=== PATIENT | male | born 1985 | race Caucasian/White ===

== ENCOUNTER 2020-01-26 10:23 | Outpatient (REF) | payer OTHER, SELFPAY | END 2020-01-26 10:24 | disposition home or self-care (01) | LOC: HO.HMGCLDS 10:23 | PROVIDERS: PCP Internal Medicine; Visit Provider Internal Medicine | DX: Z20.828 Contact with and (suspected) exposure to other viral communicable diseases (principal) | CPT/HCPCS: C9803; U0003 ==

== ENCOUNTER 2020-02-03 10:45 | Outpatient (REF) | payer OTHER, SELFPAY | END 2020-02-03 10:46 | disposition home or self-care (01) | LOC: HO.HMGCLDS 10:45 | PROVIDERS: PCP Internal Medicine; Visit Provider Internal Medicine | DX: Z20.828 Contact with and (suspected) exposure to other viral communicable diseases (principal) | CPT/HCPCS: C9803; U0003 ==

== ENCOUNTER 2022-04-12 18:09 | Outpatient (REF) | payer OTHER, SELFPAY ==
[2022-04-12 19:12] LABS: Influenza A PCR NEGATIVE (Negative); Influenza B PCR NEGATIVE (Negative); Resp Syncy Virus RNA Qual PCR NEGATIVE (Negative); SARS COV2 PCR INHOUSE POSITIVE (Negative)
== END 2022-04-12 18:10 | disposition home or self-care (01) ==
LOC: HO.LNP 18:09
PROVIDERS: Visit Provider Physician Assistant Medical
DX: Z20.822 Contact with and (suspected) exposure to COVID-19 (principal); R05.9 Cough, unspecified
CPT/HCPCS: 0241U

== ENCOUNTER 2022-08-20 12:11 | Outpatient (REF) | payer OTHER, SELFPAY ==
[2022-08-20 13:59] LABS: MANUAL DIFF FLAG NO
[2022-08-20 14:06] LABS: Basophils Percent Auto 0.2 % (0-2); Eosinophils Absolute Auto 0.2 X10*3/uL (0.0-0.4); Eosinophils Percent Auto 2.5 % (0-4); Hematocrit 51.3 % (42.0-52.0); Hemoglobin 17.2 g/dl (14.0-18.0); Imm Gran Abs Auto 0.02 X10*3/uL (0.00-0.03); Imm Gran Pct Auto 0.3 % (0.0-0.4); Lymphocytes Absolute Auto 0.9 X10*3/uL (1.2-4.9); Lymphocytes Percent Auto 15.4 % (20-40); Mean Corpuscular HGB Conc 33.5 g/dl (31.0-36.0); Mean Corpuscular Hemoglobin 30.3 pg (27.0-33.0); Mean Corpuscular Volume 90.5 fL (80.0-98.0); Mean Platelet Volume 11.2 fL (9.4-12.4); Monocytes Absolute Auto 0.6 X10*3/uL (0.1-1.2); Monocytes Percent Auto 9.1 % (2-11); Neutrophils Absolute Auto 4.4 x10*3/uL (2.0-8.3); Neutrophils Percent Auto 72.5 % (45-73); Platelet Count 221 X10*3/uL (160-400); Red Blood Count 5.67 X10*6/uL (4.60-5.80); Red Cell Distribution Width 12.8 % (11.0-16.0)
[2022-08-20 14:52] LABS: Alanine Aminotransferase 25 U/L (0-40); Alkaline Phosphatase 72 U/L (39-117); Anion Gap 15 (12-20); Aspartate Amino Transferase 18 U/L (5-37); Bilirubin Total 0.7 mg/dL (0.0-1.0); Blood Urea Nitrogen 15 mg/dL (9-16); Carbon Dioxide 25 mmol/L (22-29); Chloride 107 mmol/L (96-108); Cholesterol 135 mg/dL; Estimated Glomerular Filt Rate > 60; Glucose Fasting 84 mg/dL (60-99); HDL Cholesterol 34 mg/dL; LDL Cholesterol Calculated 85 mg/dl; Potassium 4.2 mmol/L (3.3-5.1); Sodium 143 mmol/L (135-145); TSH reflex Free T4 0.98 uIU/mL (0.32-4.0); Total Protein 6.9 g/dL (6.5-8.0); Triglycerides 81 mg/dL
[2022-08-21 18:28] LABS: Lyme Abs Screen <0.90 index
== END 2022-08-20 12:12 | disposition home or self-care (01) ==
LOC: HO.HMGCLDS 12:11
PROVIDERS: PCP Internal Medicine; Visit Provider Physician Assistant
DX: Z00.01 Encounter for general adult medical examination with abnormal findings (principal); S00.06XA Insect bite (nonvenomous) of scalp, initial encounter; W57.XXXA Bitten or stung by nonvenomous insect and other nonvenomous arthropods, initial encounter; R03.0 Elevated blood-pressure reading, without diagnosis of hypertension
CPT/HCPCS: 36415; 80053; 80061; 84443; 85025; 86617; 86618

== ENCOUNTER 2022-11-10 11:12 | Outpatient (AMB) | payer OTHER, SELFPAY ==
--- NOTE | 2022-11-10 12:30 | MHC.OFFWIV ---
Intake Vital Signs 11/10/22 12:31 Height 4 ft 4 in Weight 165 lb BMI 42.9 BP 132/78 Blood Pressure Location Lt brachial Position Sitting Pulse 81 Pulse Source Pulse Oximeter Pulse Oximetry (%) 97 Oxygen Delivery Method Room Air Oxygen Flow Rate 98.9 Intake Visit Reasons: Rt eye pink/[phone] Intake Note: Patient is here with right eye irritation since yesterday. He states it's been watery. Patient Tobacco Use Status: Former Tobacco user (quit 6 years ago ) Allergies Doxycycline Hyclate Adverse Reaction (Unknown, Verified 11/10/22 12:31) Vomiting Do you need a note to return to daycare/school/sports/work: Yes HPI HPI Comments History of Present Illness Details This is a 37-year-old male who presents to the office today for sick visit. Patient complaining of right eye redness, irritation, and a ?gritty? feeling x2 days. He reports watery discharge but denies any purulent discharge. He denies any vision changes. He reports mild nasal congestion. He otherwise feels well without fever/chills, chest pain, shortness of breath, abdominal pain, nausea/vomiting/diarrhea. He denies any foreign body or injury to the eye. He states the symptoms are starting to spread to the left eye. [facility] Social History Housing: House Patient Tobacco Use Status: Former Tobacco user (quit 6 years ago ) Tobacco use type: Cigarette Years Smoked: 6 months e-Cigarette/Vaping Use: Never Used Second Hand Smoke Exposure: No service: No Current occupational status: employed Current occupational exposures/hazards: No Cognitive needs: No Hearing needs: No Vision needs: Yes Review of Systems Const All systems reviewed & are unremarkable except as noted in HPI and below Reports no additional complaints Eyes Reports no additional complaints ENT Reports no additional complaints Card Reports no additional complaints Resp Reports no additional complaints GI Reports no additional complaints Reports no additional complaints Musc Reports no additional complaints Skin/Breast Reports system reviewed and no additional complaints, except as documented Neuro Reports no additional complaints Psych Reports no additional complaints Endo Reports no additional complaints Raghu/Lymph Reports no additional complaints Aller/Immun Reports no additional complaints Physical Exam Vital Signs: Last Vital Signs Pulse 81 11/10/22 12:31 BP 132/78 11/10/22 12:31 Pulse Ox 97 11/10/22 12:31 Oxygen Delivery Method Room Air 11/10/22 12:31 Oxygen Flow Rate 98.9 11/10/22 12:31 BMI result Body Mass Index 42.9 Const General: cooperative, healthy appearing, no acute distress and well developed Orientation/consciousness: patient oriented x3 HEENT Head: Yes normal to inspection Ears: hearing grossly normal bilaterally General nose exam: Normal external nose present Face and sinus: Yes normal facial exam Mouth: Normal oral and palatal mucosa present Eyes Other: Conjunctival injection of the right eye with watery discharge. Pupils: Equal, round and reactive pupils present EOM: EOMs intact bilaterally Resp Effort & Inspection: normal respiratory effort and no respiratory distress Auscultation: clear to auscultation bilaterally Cardio Rate: regular rate Rhythm: regular rhythm Heart sounds: no gallops, no murmurs and no rubs Peripheral pulses: Peripheral pulses 2+ throughout GI Inspection: No distended Palpation (GI): Soft to palpation and nontender Auscultation: normal bowel sounds Skin General skin exam: no rashes or lesions noted Neuro General: patient oriented x3 Cranial nerves: Yes CN's II-XII intact bilaterally and Yes Equal, round and reactive pupils present Gait exam (Neuro): Normal gait present Motor exam (neuro): 5/5 motor strength present throughout Extrem General: Yes normal to inspection, Yes full ROM and Yes no clubbing, cyanosis or edema Psych Appearance: grossly normal Mental Status: mental status grossly normal Assessment & Plan Assessment & Plan (1) Viral conjunctivitis of both eyes: Code(s): B30.9 - Viral conjunctivitis, unspecified Plan: This is a 37-year-old male presenting to the office complaining of right greater than left eye irritation, watery discharge, and itching no purulence drainage noted. No visual changes. Patient's vital signs are stable, his physical exam is otherwise benign, and he is overall nontoxic appearing. History and physical are most consistent with viral versus allergic conjunctivitis. Patient sent home with recommendations to utilize cool compresses as well as [id number] lubricating eyedrops as needed. He was also prescribed olopatadine eyedrops every morning to help with allergic conjunctivitis. He was instructed to continue oral antihistamine treatment. Patient was educated on good hand hygiene. Patient was instructed to follow-up here or go directly to the emergency room if he were to develop worsening/persistent symptoms or visual changes. Patient verbalizes understanding and he is in agreement Medications: New olopatadine 0.2% 1 drp ophthalmic (eye) QAM 2.5 mL 0RF Coding Level of Care Code Est Pt Level 3 (47624) Diagnoses Viral conjunctivitis of both eyes B30.9
[2022-11-10 12:31] VITALS: BP 132/78; PULSE 81; O2SAT 97; BMI 42.9
== END 2022-11-10 13:02 | disposition home or self-care (01) ==
PROVIDERS: PCP Internal Medicine; Visit Provider Physician Assistant Medical
DX: B30.9 Viral conjunctivitis, unspecified (principal)
CPT/HCPCS: 99213

== ENCOUNTER 2023-06-27 15:34 | Outpatient (AMB) | payer BC, SELFPAY ==
[2023-06-27 15:27] VITALS: BP 112/72; PULSE 86; TEMP 36.9; O2SAT 95; BMI 43.5
--- NOTE | 2023-06-27 15:27 | MHC.OFFWIV ---
Intake Vital Signs 06/27/23 15:27 Height 4 ft 4 in Weight 167 lb 4 oz BMI 43.5 BP 112/72 Blood Pressure Location Lt brachial Position Sitting Pulse 86 Pulse Source Pulse Oximeter Temp 98.4 F Temp Source Oral Pulse Oximetry (%) 95 Oxygen Delivery Method Room Air Intake Visit Reasons: EP sore throat Intake Note: Pt presents to the office today for c/o a sore throat that started 2 days ago. He states he has some body aches as well. Patient Tobacco Use Status: Former Tobacco user (quit 6 years ago ) Allergies Doxycycline Hyclate Adverse Reaction (Unknown, Verified 06/27/23 15:29) Vomiting HPI HPI Comments History of Present Illness Details 38 y/o male patient who presents to walk in clinic today with c/o Sore-throat x 2 days. He has tried OTC medications with no much relief. Denies fevers, chills, nausea or vomiting. [facility] Social History Housing: House Patient Tobacco Use Status: Former Tobacco user (quit 6 years ago ) Tobacco use type: Cigarette Years Smoked: 6 months e-Cigarette/Vaping Use: Never Used Second Hand Smoke Exposure: No service: No Current occupational status: employed Current occupational exposures/hazards: No Cognitive needs: No Hearing needs: No Vision needs: Yes Physical Exam Vital Signs: Last Vital Signs Temp 98.4 F 06/27/23 15:27 Pulse 86 06/27/23 15:27 BP 112/72 06/27/23 15:27 Pulse Ox 95 06/27/23 15:27 Oxygen Delivery Method Room Air 06/27/23 15:27 BMI result Body Mass Index 43.5 Results AMB Rapid Strep AMB Rapid Strep Negative Last Edit by Padmini Campbell CMA on 06/27/23 15:45 Assessment & Plan Assessment & Plan (1) Acute pharyngitis: Code(s): J02.9 - Acute pharyngitis, unspecified Qualifiers: Pharyngitis/tonsillitis etiology: unspecified etiology Qualified Code(s): J02.9 - Acute pharyngitis, unspecified Plan: - OTC cold remedies - No need for Abx today - Warm fluids with Honey - Rest - Acetaminophen for pain relief. - RTC if symptoms worse. Orders: Orders SARS-CoV2/FLU/RSV Today J02.9 - Acute pharyngitis, unspecified AMB Rapid Strep Screen Today Z13.9 - Encounter for screening, unspecified Coding Level of Care Code Est Pt Level 3 (88844) Diagnoses Acute pharyngitis, unspecified etiology J02.9 Pharyngitis/tonsillitis etiology: unspecified etiology Time Spent (min) 15
== END 2023-06-27 15:50 | disposition home or self-care (01) ==
PROVIDERS: PCP Internal Medicine; Visit Provider Nurse Practitioner Family
DX: J02.9 Acute pharyngitis, unspecified (principal)
CPT/HCPCS: 87880; 99213

== ENCOUNTER 2023-06-27 15:47 | Outpatient (REF) | payer BC, SELFPAY ==
[2023-06-28 12:36] LABS: Influenza A PCR NEGATIVE (Negative); Influenza B PCR NEGATIVE (Negative); Resp Syncy Virus RNA Qual PCR NEGATIVE (Negative); SARS COV2 PCR INHOUSE NEGATIVE (Negative)
== END 2023-06-27 15:48 | disposition home or self-care (01) ==
LOC: HO.LAB 15:47
PROVIDERS: Visit Provider Nurse Practitioner Family
DX: J02.9 Acute pharyngitis, unspecified (principal)
CPT/HCPCS: 0241U

== ENCOUNTER 2023-07-03 14:43 | Outpatient (AMB) | payer BC, SELFPAY ==
[2023-07-03 14:56] VITALS: BP 120/62; PULSE 89; TEMP 36.9; O2SAT 96; BMI 42.9
--- NOTE | 2023-07-03 14:56 | MHC.OFFWIV ---
Intake Vital Signs 07/03/23 14:56 Height 4 ft 4 in Weight 165 lb BMI 42.9 BP 120/62 Blood Pressure Location Lt brachial Position Sitting Pulse 89 Pulse Source Pulse Oximeter Temp 98.5 F Temp Source Oral Pulse Oximetry (%) 96 Oxygen Delivery Method Room Air Intake Visit Reasons: EP chest infection (lobby) Intake Note: Patient is here with cough with brown mucous, worse at night, has a sore throat which he uses cough drops for tested neg for strep last time he was seen. Patient Tobacco Use Status: Former Tobacco user Allergies Doxycycline Hyclate Adverse Reaction (Unknown, Verified 07/03/23 14:58) Vomiting Do you need a note to return to daycare/school/sports/work: Yes HPI HPI Comments History of Present Illness Details The patient presents to urgent care for evaluation of ongoing cough. He was seen here a week ago for sore throat and viral symptoms strep test and COVID flu swabs were negative. He states that last he developed a cough which has progressed in over the weekend became productive with greenish yellow sputum. Now he is coughing up brownish sputum. No fevers no shortness of breath no chest pain. He has a nonsmoker. Patient reports that the cough was keeping him up last night and he took some NyQuil which helped considerably. [facility] Social History Housing: House Patient Tobacco Use Status: Former Tobacco user Tobacco use type: Cigarette Years Smoked: 6 months e-Cigarette/Vaping Use: Never Used Second Hand Smoke Exposure: No service: No Current occupational status: employed Current occupational exposures/hazards: No Cognitive needs: No Hearing needs: No Vision needs: Yes Physical Exam Vital Signs: Last Vital Signs Temp 98.5 F 07/03/23 14:56 Pulse 89 07/03/23 14:56 BP 120/62 07/03/23 14:56 Pulse Ox 96 07/03/23 14:56 Oxygen Delivery Method Room Air 07/03/23 14:56 BMI result Body Mass Index 42.9 Const General: healthy appearing and no acute distress HEENT Mouth: Normal oral and palatal mucosa present Resp Effort & Inspection: normal respiratory effort and able to speak in complete sentences Auscultation: clear to auscultation bilaterally Cardio Rate: regular rate Rhythm: regular rhythm Results AMB Rapid Strep AMB Rapid Strep Negative Last Edit by Bhakti Cano CMA on 07/03/23 15:12 Results Reviewed Results Reviewed: Laboratory Last Values Strep Scn Rapid Clinic Negative 07/03/23 15:09 Assessment & Plan Assessment & Plan (1) Cough: Code(s): R05.9 - Cough, unspecified Plan Symptoms consistent with viral URI/cough. Recommend supportive measures. He does not need antibiotics. Discussed Elida Sahni though he states that cough lozenges have been helping to suppress the cough and the NyQuil working. Orders: Orders AMB Rapid Strep Screen Today J02.9 - Acute pharyngitis, unspecified Coding Level of Care Code Est Pt Level 3 (66058) Diagnoses Cough R05.9
== END 2023-07-03 15:27 | disposition home or self-care (01) ==
PROVIDERS: PCP Internal Medicine; Visit Provider Emergency Medicine
DX: R05.9 Cough, unspecified (principal); J02.9 Acute pharyngitis, unspecified
CPT/HCPCS: 87880; 99213

== ENCOUNTER 2023-07-16 14:26 | Outpatient (AMB) | payer BC, SELFPAY ==
[2023-07-16 14:28] VITALS: BP 130/76; PULSE 86; O2SAT 97; BMI 42.2
--- NOTE | 2023-07-16 14:28 | A.OFFPC_ITS ---
Vital Signs 07/16/23 14:28 Height 4 ft 4 in Weight 162 lb 4 oz BMI 42.2 BP 130/76 Blood Pressure Location Rt brachial Position Sitting Pulse 86 Pulse Source Pulse Oximeter Pulse Oximetry (%) 97 Oxygen Delivery Method Room Air Intake Visit Reasons: PE Allergies Doxycycline Hyclate Adverse Reaction (Unknown, Verified 07/16/23 14:29) Vomiting Medication List - Last Reconciled 07/16/23 by Jordana Ugalde MD No Known Home Meds Tobacco use date assessed: 07/16/23 Dental Screening Dental Screen Date: 07/16/23 Did you have a dental visit in the last 12 months?: Yes Did you have a dental problem in the last 6 months where you did not have access to dental care?: No Was dental information given to patient?: Patient has dentist HPI PE HPI Details Patient is a 38-year-old gentleman with a history of achondroplasia came in today for physical examination Patient is recovering from a viral illness and is now having feeling blocked in his ears On exam patient have slight inflammation in the ear but no signs of infection He will get back to me in couple of weeks if not feeling better Patient need skin cancer screening, referral placed Blood pressure is in prehypertensive range Lab order placed to be done fasting Patient have a history of recurrent diverticulitis he has been evaluated by Gastroenterology Patient says that pain usually last a day and he is aware of dietary restrictions Today his abdomen is benign [facility] Social History Housing: House Patient Tobacco Use Status: Former Tobacco user Tobacco use type: Cigarette Years Smoked: 6 months e-Cigarette/Vaping Use: Never Used Second Hand Smoke Exposure: No service: No Current occupational status: employed Current occupational exposures/hazards: No Cognitive needs: No Hearing needs: No Vision needs: Yes Questionnaire PHQ-9 Over the last 2 weeks, how often have you been bothered by any of the following problems? 1. Little interest or pleasure in doing things: not at all 2. Feeling down, depressed, or hopeless: not at all 3. Trouble falling or staying asleep, or sleeping too much: not at all 4. Feeling tired or having little energy: not at all 5. Poor appetite or overeating: not at all 6. Feeling bad about yourself - or that you are a failure or have let yourself or your family down: not at all 7. Trouble concentrating on things, such as reading the newspaper or watching television: not at all 8. Moving or speaking so slowly that other people could have noticed. Or the opposite - being so fidgety or restless that you have been moving around a lot more than usual: not at all 9. Thoughts that you would be better off or of hurting yourself in some way: not at all Total score: 0 Depression Screening Interpretation: Negative Depression Screening Done: Yes 09948 - PHQ-9 Billing: Yes Source: Developed by Drs. William Ramirez, Vivian Hylton, Nav Guzman and colleagues, with an educational benita from [employer]. Thrive Questionnaire Date Thrive assessed: 07/16/23 I am a: Patient What is your living situation today?: I have a steady place to live Within the past 12 months, did the food you bought not last and you didn't have the money to get more?: Never true Within the past 12 months, did you worry whether your food would run out before you got money to buy more?: Never true Do you have trouble paying for medicines?: No Do you have trouble getting transportation to medical appointments?: No Do you have trouble paying your heating and electricity bill?: No Do you have trouble taking care of your child, family member or friend?: No Do you have trouble with day-to-day activities such as bathing, preparing meals, shopping, managing finances, etc.?: No Are you currently unemployed and looking for a job?: No Are you interested in more education?: No Please select the resources that you would like help with: None Currently or been in a relationship where the following occur: no concerns reported THRIVE Score: 0 AUDIT C Alcohol Use Questionnaire (AUDIT-C) 1. How often do you have a drink containing alcohol?: Never 3. How often do you have six or more drinks on one occasion?: Never Total Score: 0 Score Reviewed/Action Taken: Yes CHAY-7 AMB Questionnaire CHAY-7 Date CHAY - 7 assessed: 07/16/23 Feeling nervous, anxious, or on edge: 0 = Not at all Not being able to stop or control worryin = Not at all Worrying too much about different things: 0 = Not at all Trouble relaxin = Not at all Being so restless that it is hard to sit still: 0 = Not at all Becoming easily annoyed or irritable: 0 = Not at all Feeling afraid as if something awful might happen: 0 = Not at all Total CHAY-7 score (0-4 normal; 5-9 mild; 10-14 moderate; 15-21 severe): 0 Source: Developed by Drs. William Ramirez, Vivian Hylton, Nav Guzman and colleagues, with an educational benita from [employer]. CHAY-7 Assessment Billing CHAY-7 Assessment Tool: CHAY-7 Assessment 98473 Review of Systems Const Denies chills, Denies fever(s) and Denies headache(s) Eyes Denies blurry vision ENT Denies headache(s), Denies odynophagia and Denies sinus pain Card Denies chest pain at rest and Denies chest pain with activity Resp Denies cough and Denies hemoptysis GI Denies diarrhea, Denies odynophagia, Denies vomiting and Denies hematemesis Reports as per HPI Musc Denies abnormal gait Skin/Breast Reports as per HPI Neuro Denies Neuro-related abnormal movements, Denies Abnormal speech present, Denies abnormal gait, Denies headache(s) and Denies Sensory deficit (Neuro) Psych Denies mood swings and Denies paranoia Endo Reports as per HPI Raghu/Lymph Reports as per HPI Aller/Immun Reports as per HPI Physical exam (Primary Care) Vital Signs: Last Vital Signs Pulse 86 07/16/23 14:28 BP 130/76 07/16/23 14:28 Pulse Ox 97 07/16/23 14:28 Oxygen Delivery Method Room Air 07/16/23 14:28 BMI result Body Mass Index 42.2 Tobacco/Smoking Status: Tobacco use Status Tobacco use date assessed 07/16/23 07/16/23 14:30 Patient Tobacco Use Status Former Tobacco user 07/16/23 14:30 Tobacco use type Cigarette 07/16/23 14:30 e-Cigarette/Vaping Use Never Used 07/16/23 14:30 PHQ-9: PHQ-9 Score PHQ-9: Total score 0 07/16/23 14:47 Depression Screening Interpretation: Negative Thrive Assessment: Date of Thrive Assessment Date Thrive assessed 07/16/23 07/16/23 14:47 Currently or been in a relationship where the following occur: no concerns reported Const Other: Gentleman with achondroplasia in no acute distress, both ears with dull light reflex but no infection General: cooperative, comfortable and no acute distress Orientation/consciousness: patient oriented x3 HENMT Head: Yes normocephalic and Yes atraumatic Eyes General: appearance normal, both eyes and all related structures Pupils: Equal, round and reactive pupils present EOM: EOMs intact bilaterally Neck Neck: Yes supple and No lymphadenopathy Thyroid: Thyroid normal Lymphatic: no lymphadenopathy noted Resp Effort & Inspection: normal respiratory effort and able to speak in complete sentences Auscultation: clear to auscultation bilaterally Cardio Heart sounds: S1 normal heart sound present and S2 normal heart sound present GI Palpation (GI): Soft to palpation and nontender Auscultation: normal bowel sounds General: Yes no CVA tenderness Back/Spine/Pelvis Back: no CVA tenderness Skin General skin exam: elasticity normal and turgor normal Neuro General: patient oriented x3 Cranial nerves: Yes Equal, round and reactive pupils present Speech: No Abnormal speech present Sensory Exam: No Sensory deficit (Neuro) Coordination: tandem gait normal and Romberg test negative Extrem General: Yes normal exam except as noted and No edema Assessment and Plan Assessment & Plan (1) Encounter for general adult medical examination with abnormal findings: Code(s): Z00.01 - Encounter for general adult medical examination with abnormal findings (2) Ear congestion: Code(s): H93.8X9 - Other specified disorders of ear, unspecified ear Qualifiers: Laterality: bilateral Qualified Code(s): H93.8X3 - Other specified disorders of ear, bilateral (3) Achondroplasia: Code(s): Q77.4 - Achondroplasia (4) Diverticular disease: Code(s): K57.90 - Diverticulosis of intestine, part unspecified, without perforation or abscess without bleeding Plan Patient is a 38-year-old gentleman with a history of achondroplasia came in today for physical examination Patient is recovering from a viral illness and is now having feeling blocked in his ears On exam patient have slight inflammation in the ear but no signs of infection He will get back to me in couple of weeks if not feeling better Patient need skin cancer screening, referral placed Blood pressure is in prehypertensive range Lab order placed to be done fasting Patient have a history of recurrent diverticulitis he has been evaluated by Gastroenterology Patient says that pain usually last a day and he is aware of dietary restrictions Today his abdomen is benign Orders: Orders Complete Blood Count Auto Diff Today H93.8X9 - Other specified disorders of ear, unspecified ear, Q77.4 - Achondroplasia, Z00.01 - Encounter for general adult medical examination with abnormal findings Comprehensive [place]. Panel Fast Today H93.8X9 - Other specified disorders of ear, unspecified ear, Q77.4 - Achondroplasia, Z00.01 - Encounter for general adult medical examination with abnormal findings LDL Cholesterol Direct Today H93.8X9 - Other specified disorders of ear, unspecified ear, Q77.4 - Achondroplasia, Z00.01 - Encounter for general adult medical examination with abnormal findings TSH reflex Free T4 Today H93.8X9 - Other specified disorders of ear, unspecified ear, Q77.4 - Achondroplasia, Z00.01 - Encounter for general adult medical examination with abnormal findings Vitamin D 25-OH (D2 and D3) Today Q77.4 - Achondroplasia Referrals Dermatology Referral Z12.83 - Encounter for screening for malignant neoplasm of skin Coding Level of Care Code Est Pt Prev Care 18-39y(37041) Diagnoses Encounter for general adult medical examination with abnormal findings Z00.01 Congestion of both ears H93.8X3 Laterality: bilateral Achondroplasia Q77.4 Diverticular disease K57.90 Additional Codes CHAY-7 Assessment Billing - CHAY-7 Assessment Tool: CHAY-7 Assessment [id number] ([id number])
== END 2023-07-16 14:47 | disposition home or self-care (01) ==
PROVIDERS: PCP Internal Medicine; Visit Provider Internal Medicine
DX: Z00.00 Encounter for general adult medical examination without abnormal findings (principal); H93.8X3 Other specified disorders of ear, bilateral; Q77.4 Achondroplasia; K57.90 Diverticulosis of intestine, part unspecified, without perforation or abscess without bleeding
CPT/HCPCS: 99395

== ENCOUNTER 2024-07-24 15:23 | Outpatient (AMB) | payer BC, SELFPAY ==
[2024-07-24 15:25] VITALS: BP 120/76; PULSE 77; O2SAT 98; BMI 40.4
--- NOTE | 2024-07-24 15:25 | A.OFFPC_ITS ---
Vital Signs 07/24/24 15:25 Height 4 ft 4 in Weight 155 lb 8 oz BMI 40.4 BP 120/76 Blood Pressure Location Rt brachial Position Sitting Pulse 77 Pulse Source Pulse Oximeter Pulse Oximetry (%) 98 Oxygen Delivery Method Room Air Intake Visit Reasons: PE Allergies Doxycycline Hyclate Adverse Reaction (Unknown, Verified 07/24/24 15:26) Vomiting Medication List - Last Reconciled 07/24/24 by Jordana Ugalde MD No Known Home Meds Tobacco use date assessed: 07/24/24 Dental Screening Dental Screen Date: 07/24/24 Did you have a dental visit in the last 12 months?: Yes Did you have a dental problem in the last 6 months where you did not have access to dental care?: No Was dental information given to patient?: Patient has dentist HPI PE HPI Details Physical exam appointment - The patient is a 39-year-old male with a history of achondroplasia complaining of mid back pain. - The pain has been present for about 1- 2 months, with increasing frequency and severity. - Pain typically arises after prolonged walking and is described as tightening. - The pain is not radiating to the legs and is considered to be unrelated to spinal issues. . - The patient also reports symptoms sugg estive of prostatic hyperplasia. - Experiences post-void dribbling but de nies nocturia or increased daytime frequency. - The feeling of incomplete bladder empt paloma is not reported. - Recurrent herpes labialis is noted. - Cold sores occur approximately once or twice a year, with the most recent episode being notably severe. Health Maintenance - Discussion regarding tetanus vaccinati on status. He will be due in 2026 - Patient encouraged to keep up with [facility] screening and physical examination. Medications - Valacyclovir for herpes labialis episo neri (prescription previously used: Zovirax was mentioned but ineffective). Patient Instructions - Obtain prescribed fasting blood tests (10-12 hour fast with allowance for water/black coffee). - Schedule and complete an X-ray for the back. - Begin physical therapy to strengthen b ack muscles. - Start taking Flomax once daily for uri nary symptoms. - Monitor medication effects and follow up with a urologist if symptoms persist. - Use valacyclovir 1g at onset of cold s ore symptoms, twice a day for one day. - Follow up for routine physical examina tion in one year. Review of Systems - General: No fever no chills - Neurological: No headaches no dizzin ess - Ear nose throat: No sore throat no hearing difficulty no ear pain - Cardiovascular: No syncope, no chest pain, no palpitations - Gastrointestinal: No nausea vomiting or diarrhea - Endocrine: No polyuria polydipsia no heat intolerance - Genitourinary: No dysuria - Skin: No new complaints Physical Exam General: Cooperative, healthy appearing, comfortable, no acute distress Orientation: Patient oriented x3 Head: Normal to inspection Ears: Within normal limit visually Nose: Normal external nose present Face and sinus: Normal facial exam Eyes: Appearance normal, extraocular movement intact pupils reactive Neck: Normal visual inspection and supple Respiratory: Normal respiratory effort and able to speak in complete sentences. Clear to auscultation, no stridor Cardiovascular: S1 and S2 RRR GI: Normal to inspection. Soft to palpation and nontender Skin: Turgor normal, no acute findings Neuro: Patient oriented x3, motor sensory intact, balance intact, tandem pass Extremities: Achondroplasia full range of motion [facility] Social History Housing: House Patient Tobacco Use Status: Former Tobacco user Tobacco use type: Cigarette Years Smoked: 6 months e-Cigarette/Vaping Use: Never Used Second Hand Smoke Exposure: No service: No Current occupational status: employed Current occupational exposures/hazards: No Cognitive needs: No Hearing needs: No Vision needs: Yes Questionnaire PHQ-9 Over the last 2 weeks, how often have you been bothered by any of the following problems? 1. Little interest or pleasure in doing things: not at all 2. Feeling down, depressed, or hopeless: not at all 3. Trouble falling or staying asleep, or sleeping too much: not at all 4. Feeling tired or having little energy: several days 5. Poor appetite or overeating: not at all 6. Feeling bad about yourself - or that you are a failure or have let yourself or your family down: not at all 7. Trouble concentrating on things, such as reading the newspaper or watching television: not at all 8. Moving or speaking so slowly that other people could have noticed. Or the opposite - being so fidgety or restless that you have been moving around a lot more than usual: not at all 9. Thoughts that you would be better off or of hurting yourself in some way: not at all Total score: 1 Depression Screening Interpretation: Negative Depression Screening Done: Yes 14112 - PHQ-9 Billing: Yes Source: Developed by Drs. William Ramirez, Vivian Hylton, Nav Guzman and colleagues, with an educational benita from [employer]. Thrive Questionnaire Date Thrive assessed: 07/24/24 I am a: Patient What is your living situation today?: I have a steady place to live Within the past 12 months, did the food you bought not last and you didn't have the money to get more?: I choose not to answer this question Within the past 12 months, did you worry whether your food would run out before you got money to buy more?: I choose not to answer this question Do you have trouble paying for medicines?: I choose not to answer this question Do you have trouble getting transportation to medical appointments?: I choose not to answer this question Do you have trouble paying your heating and electricity bill?: I choose not to answer this question Do you have trouble taking care of your child, family member or friend?: I choose not to answer this question Do you have trouble with day-to-day activities such as bathing, preparing meals, shopping, managing finances, etc.?: I choose not to answer this question Are you currently unemployed and looking for a job?: I choose not to answer this question Are you interested in more education?: I choose not to answer this question Please select the resources that you would like help with: None Currently or been in a relationship where the following occur: I choose not to answer THRIVE Score: 0 AUDIT C Alcohol Use Questionnaire (AUDIT-C) 1. How often do you have a drink containing alcohol?: Monthly or less 2. How many drinks containing alcohol do you have on a typical day when you are drinking?: 1 or 2 3. How often do you have six or more drinks on one occasion?: Never Total Score: 1 Score Reviewed/Action Taken: Yes CHAY-7 AMB Questionnaire CHAY-7 Date CHAY - 7 assessed: 07/24/24 Feeling nervous, anxious, or on edge: 0 = Not at all Not being able to stop or control worryin = Not at all Worrying too much about different things: 0 = Not at all Trouble relaxin = Not at all Being so restless that it is hard to sit still: 0 = Not at all Becoming easily annoyed or irritable: 0 = Not at all Feeling afraid as if something awful might happen: 0 = Not at all Total CHAY-7 score (0-4 normal; 5-9 mild; 10-14 moderate; 15-21 severe): 0 Source: Developed by Drs. William Ramirez, Vivian Hyltno, Nav Guzman and colleagues, with an educational benita from [employer]. CHAY-7 Assessment Billing CHAY-7 Assessment Tool: CHAY-7 Assessment 64651 Physical exam (Primary Care) Vital Signs: Last Vital Signs Pulse 77 07/24/24 15:25 BP 120/76 07/24/24 15:25 Pulse Ox 98 07/24/24 15:25 Oxygen Delivery Method Room Air 07/24/24 15:25 BMI result Body Mass Index 40.4 Tobacco/Smoking Status: Tobacco use Status Tobacco use date assessed 07/24/24 07/24/24 15:27 Patient Tobacco Use Status Former Tobacco user 07/24/24 15:27 Tobacco use type Cigarette 07/24/24 15:27 e-Cigarette/Vaping Use Never Used 07/24/24 15:27 PHQ-9: PHQ-9 Score PHQ-9: Total score 1 07/24/24 15:30 Depression Screening Interpretation: Negative Thrive Assessment: Date of Thrive Assessment Date Thrive assessed 07/24/24 07/24/24 15:30 Currently or been in a relationship where the following occur: I choose not to answer Coding Level of Care Code Est Pt Level 4 (66637) Est Pt Prev Care 40-64y(70752) Diagnoses Chronic bilateral thoracic back pain M54.6; G89.29 Chronicity: chronic Dribbling of urine N39.43 Cold sore B00.1 Encounter for general adult medical examination with abnormal findings Z00.01 Achondroplasia Q77.4 Diverticular disease K57.90 Additional Codes CHAY-7 Assessment Billing - CHAY-7 Assessment Tool: CHAY-7 Assessment 48715 ([id number]) PHQ-9 - 13132 - PHQ-9 Billing: Yes ([id number]) Assessment & Plan Assessment & Plan (1) Bilateral thoracic back pain: Code(s): M54.6 - Pain in thoracic spine Category: Medical Qualifiers: Chronicity: chronic Qualified Code(s): M54.6 - Pain in thoracic spine; G89.29 - Other chronic pain (2) Dribbling of urine: Code(s): N39.43 - Post-void dribbling Category: Medical (3) Cold sore: Code(s): B00.1 - Herpesviral vesicular dermatitis Category: Medical (4) Encounter for general adult medical examination with abnormal findings: Code(s): Z00.01 - Encounter for general adult medical examination with abnormal findings Category: Medical (5) Achondroplasia: Code(s): Q77.4 - Achondroplasia Category: Medical (6) Diverticular disease: Comment: Stable Code(s): K57.90 - Diverticulosis of intestine, part unspecified, without perforation or abscess without bleeding Category: Medical Plan Physical exam appointment - The patient is a 39-year-old male with a history of achondroplasia complaining of mid back pain. - The pain has been present for about 1-2 months, with increasing frequency and severity. - Pain typically arises after prolonged walking and is described as tightening. - The pain is not radiating to the legs and is considered to be unrelated to spinal issues. . - The patient also reports symptoms suggestive of prostatic hyperplasia. - Experiences post-void dribbling but denies nocturia or increased daytime frequency. - The feeling of incomplete bladder emptying is not reported. - Recurrent herpes labialis is noted. - Cold sores occur approximately once or twice a year, with the most recent episode being notably severe. Health Maintenance - Discussion regarding tetanus vaccination status. He will be due in 2026 - Patient encouraged to keep up with health screening and physical examination. Medications - Valacyclovir for herpes labialis episodes (prescription previously used: Zovirax was mentioned but ineffective). Patient Instructions - Obtain prescribed fasting blood tests (10-12 hour fast with allowance for water/black coffee). - Schedule and complete an X-ray for the back. - Begin physical therapy to strengthen back muscles. - Start taking Flomax once daily for urinary symptoms. - Monitor medication effects and follow up with a urologist if symptoms persist. - Use valacyclovir 1g at onset of cold sore symptoms, twice a day for one day. - Follow up for routine physical examination in one year. Orders: Orders Complete Blood Count Auto Diff Today K57.90 - Diverticulosis of intestine, part unspecified, without perforation or abscess without bleeding, Q77.4 - Achondroplasia, Z00.01 - Encounter for general adult medical examination with abnormal findings Comprehensive [place]. Panel Fast Today K57.90 - Diverticulosis of intestine, part unspecified, without perforation or abscess without bleeding, Q77.4 - Achondroplasia, Z00.01 - Encounter for general adult medical examination with abnormal findings Lipid Panel Today K57.90 - Diverticulosis of intestine, part unspecified, without perforation or abscess without bleeding, Q77.4 - Achondroplasia, Z00.01 - Encounter for general adult medical examination with abnormal findings Vitamin D 25-OH (D2 and D3) Today K57.90 - Diverticulosis of intestine, part unspecified, without perforation or abscess without bleeding, Q77.4 - Achondroplasia, Z00.01 - Encounter for general adult medical examination with abnormal findings TSH reflex Free T4 Today K57.90 - Diverticulosis of intestine, part unspecified, without perforation or abscess without bleeding, Q77.4 - Achondroplasia, Z00.01 - Encounter for general adult medical examination with abnormal findings PT Evaluation and Treatment Today M54.6 - Pain in thoracic spine XR thoracic spine 2V Today M54.6 - Pain in thoracic spine Herpes Simplex Virus Ab IgG Today B00.1 - Herpesviral vesicular dermatitis Referrals Urology Referral N39.43 - Post-void dribbling Medications: New tamsulosin (Flomax) 0.4 mg PO BEDTIME 30 caps 0RF valacyclovir 1,000 mg PO DAILY 30 tabs 0RF cold sore
--- OUTSIDE RECORDS SUMMARY | 2024-07-24 15:25 | XMS_ITS | Data Portability ---
Author Organization [facility], [address] Address [address] [place] [address] Care Team Providers Care Bilingual Sales Assistant Name Role Phone ELIAANNABELLE LARA Primary Care Provider Assessment No assessment recorded. Plan of Treatment Reminders Order Date Submit Date Provider Last Modified By Organization Details Last Modified Time Details Appointments None recorded. Lab [facility] st[facility], [facility] [address], [address], 3 20:13:38 streptococc us group A, culture, throat 2022 023 [facility], [address] [place] [address], [place], [address], 3 10:06:15 Referral None recorded. Procedures None recorded. Surgeries None recorded. Imaging None recorded. Medication Orders prednisone 20 mg tablet 2022 023 [id number] [address] [place], [place], [id number], 3 13:22:49 clindamycin HCl 300 mg capsule 2022 023 [facility], [address] [place], [place], [id number], 3 20:13:45 Patient TargetsNo targets recorded. Patient InstructionsNo instructions recorded. Reason for Referral None Reported. Results Created Date Observation Date Name Description Value Unit Range Abnormal Flag Note LastModifiedBy Organization Detail LastModifiedTime 05/25/1905/28/2022 BETA STREP GP A CULTU RE beta strep gp A culture NEGATI VE Refer ence Range : Negat matilda Not Available [facility] ([facility]) [address] [facility], [place], [address], 05/28/2022 10:06:15 05/25/1905/24/2022 rapid strep group A, throa t Unknown Analyte negati ve Not Available [facility] [address], [address], 05/24/2022 19:31:05 05/25/1905/24/2022 rapid strep group A, throa t Unknown Analyte Normal = Negati ve Not Available [employer] [address], [address], 05/24/2022 19:31:05 Result Notes None recorded. Problems No Known Problems Medical Equipment None Reported. Allergies Allergen ID Allergen Name Allergen Category Reaction Reaction Severity Criticality Documentation Date Start Date Code Code System Note Provider Name and Address Organization Details Recorded Time 051668 doxycycli ne Not available vomiting Not available Not available 05/24/2022 3640 [facility] RAY Ronquillo - [facility] 18:14:59 Medications Name Sig Start Date Stop Date Status Note LastModified by Organization Details LastModified Time clindamycin HCl 300 mg capsule Take 1 capsule 3 times a day by oral route for 10 days. 023 active Not Available Not Available Not Avai lable prednisone 20 mg tablet Take 3 tablets every day by oral route for 5 days. 023 active Not Available Not Available Not Avai lable Vitals Date Recorded Body height Body mass index (BMI) Body weight Pain severity - 0-10 verbal numeric rating [Score] - Reported Oxygen saturation Oxygen saturation in Arterial blood by Pulse oximetry Heart rate Respiratory rate Body temperature Systolic blood pressure Diastolic blood pressure Provider Name and Address Organization Details Last Updated DateTime 3 132.08 cm 41.6 kg/m2 16654.7 8 g 1 100 % 100 % 96 /min 18 /min 98.6 [degF] 124 mm[Hg] 81 mm[Hg] Ashley Mirna PA - [facility] 3 18:17:51 Social History Question Answer Notes LastModified by Organizat ion Details LastModified Time Tobacco Smoking Status Former Smoker Ashley fry PA - [facility] 05/24/2022 18:16:12 What Is Your Level Of Alcohol Consumption? Occasional Information not available 05/24/2022 How Many Times Per Week Do You Consume Alcohol? Less Than 1 Time Per Week Information not available 05/24/2022 When Did You Quit Smoking? 6-10yearssince lastcigarette Information not available 05/24/2022 Do You Use Any Illicit Or Recreational Drugs? No Information not available 05/24/2022 Have You Recently Traveled Abroad? No Information not available 05/24/2022 Do You Or Have You Ever Used Any Other Forms Of Tobacco Or Nicotine? No Information not available 05/24/2022 Sex: Unknown Functional Status None recorded. Mental Status None recorded. Family History Relationship Description Onset Age of this Age Resolved Age Notes LastModified by Organization Details LastModified Time Father Malignant neoplasm of lung emonfette Not available 2022 18:15:46 Medical History No medical history recorded. Immunizations Vaccine Type Date Status Note Provider Nam e and Address Organization Details Recorded Time Influenza, split virus, quadrivalent, preservative 7 completed Ashley fry, PA - [facility] 05/24/2022 18:14:26 COVID-19, mRNA, LNP-S, PF, 30 mcg/0.3 mL dose 1 completed Ashley Bradley null, PA - [facility] 05/24/2022 18:14:26 COVID-19, mRNA, LNP-S, PF, 30 mcg/0.3 mL dose 1 completed Ashley Bradley null, PA - [facility] 05/24/2022 18:14:26 COVID-19, mRNA, LNP-S, PF, 30 mcg/0.3 mL dose 1 completed Ashley Monmedinae null, PA - [facility] 05/24/2022 18:14:26 Tdap 7 completed Ashley Monfette null, PA - [facility] 05/24/2022 18:14:26 Influenza, split virus, trivalent, preservative 5 completed Ashley Monfette null, PA - [facility] 05/24/2022 18:14:26 Past Encounters Encounter ID Performer Location Encounter Start Date Encounter Closed Date Diagnosis/Indication Diagnosis SNOMED-CT Code Diagnosis ICD10 Code Diagnosis Note [id number] [address] [place] [address] 01/28/2020 09:18:17 01/28/2020 11:22:40 [id number] [address] [place] [address] 01/08/2021 10:11:53 01/08/2021 11:51:38 [id number] [address] [place] [address] 01/31/2021 14:16:13 01/31/2021 16:28:52 [id number] [address] [place] [address] 02/04/2021 14:36:38 02/04/2021 16:40:28 [id number] SANDRA NGUYEN MD [address] [place] [address] 05/24/2022 15:31:32 05/24/2022 19:58:16 Sensation of blocked ear [id number] H93.299 Follow up with your PCP in 4 weeks for an ear re-check. Acute tonsillitis [id number] 08 J03.90 Health Concerns Section Related Observation LastModified by Organization Detai ls LastModified Time None Recorded Concern Status LastModified by Organization Details LastModified Time None Recorded Advance Directives Directive None Recorded Payers Insurance Date Sequence Insurance Name Policy Number Policy Brown Covered Member ID Brown Member ID Guarantor Name 06/18/2022 1 [facility] [id number] Paulino Santos [id number] Paulino Santos Notes Date Note Type Note Provider Name and Address Organization Details Recorded Time 05/24/2022 text/html hard of hearing in right ear x1 month, pt had covid and a sinus infection prior SANDRA NGUYEN MD [address] [facility] [place], [address], [place] - [facility] 06/18/2022 13:25:08
== END 2024-07-24 15:50 | disposition home or self-care (01) ==
LOC: HO.HMCC 15:23
PROVIDERS: PCP Internal Medicine; Visit Provider Internal Medicine
DX: Z00.01 Encounter for general adult medical examination with abnormal findings (principal); M54.6 Pain in thoracic spine; G89.29 Other chronic pain; N39.43 Post-void dribbling; B00.1 Herpesviral vesicular dermatitis; Q77.4 Achondroplasia; K57.90 Diverticulosis of intestine, part unspecified, without perforation or abscess without bleeding

== ENCOUNTER → 2024-07-24 15:23 | Outpatient (BNVA) | payer BC, SELFPAY | PROVIDERS: PCP Internal Medicine; Visit Provider Internal Medicine | DX: Z00.01 Encounter for general adult medical examination with abnormal findings (principal); M54.6 Pain in thoracic spine; G89.29 Other chronic pain; N39.43 Post-void dribbling; B00.1 Herpesviral vesicular dermatitis; K57.90 Diverticulosis of intestine, part unspecified, without perforation or abscess without bleeding; Q77.4 Achondroplasia | CPT/HCPCS: 96127 ==

== ENCOUNTER 2024-07-25 10:53 | Outpatient (REF) | payer BC, SELFPAY ==
--- NOTE | ~2024-07-25 | XR_ITS ---
EXAMINATION: XR THORACIC SPINE CLINICAL INFORMATION: M54.6 - Pain in thoracic spine COMPARISON: None available. TECHNIQUE: 3 views of the thoracic spine were obtained. FINDINGS: There is no scoliosis. There is straightening of the normal kyphosis. Normal bone mineralization. No compression deformity, fracture, or suspicious bone lesion. Disc spaces appear preserved. Facets are normally aligned. The osseous and soft tissue structures appear normal. XR/XR thoracic spine 2V IMPRESSION: No acute bony abnormality of the thoracic spine. Electronically signed by: Desmond Dutton MD 07/27/2024 08:55 AM EDT
[2024-07-25 14:10] LABS: MANUAL DIFF FLAG NO
[2024-07-25 14:15] LABS: Basophils Percent Auto 0.3 % (0-2); Eosinophils Absolute Auto 0.1 X10*3/uL (0.0-0.4); Hematocrit 47.7 % (42.0-52.0); Hemoglobin 16.3 g/dl (14.0-18.0); Imm Gran Abs Auto 0.01 X10*3/uL (0.00-0.03); Imm Gran Pct Auto 0.2 % (0.0-0.4); Lymphocytes Absolute Auto 1.4 X10*3/uL (1.2-4.9); Lymphocytes Percent Auto 23.1 % (20-40); Mean Corpuscular HGB Conc 34.2 g/dl (31.0-36.0); Mean Corpuscular Hemoglobin 30.6 pg (27.0-33.0); Mean Corpuscular Volume 89.5 fL (80.0-98.0); Mean Platelet Volume 11.2 fL (9.4-12.4); Monocytes Absolute Auto 0.4 X10*3/uL (0.1-1.2); Monocytes Percent Auto 6.3 % (2-11); Neutrophils Percent Auto 68.1 % (45-73); Platelet Count 242 X10*3/uL (160-400); Red Blood Count 5.33 X10*6/uL (4.60-5.80); Red Cell Distribution Width 12.6 % (11.0-16.0); White Blood Count 5.9 X10*3/uL (4.8-10.8)
[2024-07-25 14:42] LABS: Alanine Aminotransferase 32 U/L (0-40); Albumin Level 4.1 g/dL (3.5-5.0); Alkaline Phosphatase 101 U/L (39-117); Anion Gap 12 (12-20); Aspartate Amino Transferase 23 U/L (5-37); Bilirubin Total 0.7 mg/dL (0.0-1.0); Blood Urea Nitrogen 14 mg/dL (9-16); Calcium 9.2 mg/dL (8.4-10.2); Carbon Dioxide 25 mmol/L (22-29); Chloride 106 mmol/L (96-108); Cholesterol 163 mg/dL (<200); Estimated Glomerular Filt Rate > 60; Glucose Fasting 102 mg/dL (60-99); HDL Cholesterol 39 mg/dL (>40); LDL Cholesterol Calculated 105 mg/dL (<100); Potassium 4.1 mmol/L (3.3-5.1); Sodium 139 mmol/L (135-145); Triglycerides 97 mg/dL (<150)
[2024-07-25 14:50] LABS: TSH reflex Free T4 1.64 uIU/mL (0.32-4.0)
[2024-07-28 01:19] LABS: Herpes Simplex Type 2 IgG <0.90 index
[2024-07-30 15:58] LABS: Vitamin D 25-OH, D2 <4 ng/mL; Vitamin D 25-OH, D3 10 ng/mL; Vitamin D 25-OH, Total 10 ng/mL (30-100)
== END 2024-07-25 10:54 | disposition home or self-care (01) ==
LOC: HO.HMGCX 10:53
PROVIDERS: PCP Internal Medicine; Visit Provider Internal Medicine
DX: Z00.01 Encounter for general adult medical examination with abnormal findings (principal); M54.6 Pain in thoracic spine; Q77.4 Achondroplasia; K57.90 Diverticulosis of intestine, part unspecified, without perforation or abscess without bleeding; B00.1 Herpesviral vesicular dermatitis; Z13.6 Encounter for screening for cardiovascular disorders
CPT/HCPCS: 36415; 72070; 80053; 80061; 82306; 84443; 85025; 86695; 86696

== ENCOUNTER → 2024-07-25 10:56 | Outpatient (BNV) | payer BC, SELFPAY | PROVIDERS: PCP Internal Medicine; Visit Provider Radiology Diagnostic Radiology | DX: M54.6 Pain in thoracic spine (principal) | CPT/HCPCS: 72070 ==

== ENCOUNTER 2024-09-03 08:34 | Outpatient (AMB) | payer BC, SELFPAY ==
--- OUTSIDE RECORDS SUMMARY | 2024-09-03 08:53 | XMS_ITS | Data Portability ---
Author Organization RAY Robb [facility], [address] Address [address] [place] [address] Care Team Providers Care Avionics Installer Name Role Phone ELIAANNABELLE LARA Primary Care Provider [phone] Assessment No assessment recorded. Plan of Treatment Reminders Order Date Submit Date Provider Last Modified By Organization Details Last Modified Time Details Appointments None recorded. Lab rapid strep group A, throat [address] [email or web address] [address], [address], 3 20:13:38 streptococc us group A, culture, throat 2022 023 [facility], [address] [place] [address], [place], [address], 3 10:06:15 Referral None recorded. Procedures None recorded. Surgeries None recorded. Imaging None recorded. Medication Orders prednisone 20 mg tablet 2022 023 [email or web address] 247 [facility] [address] [place], [place], [id number], 3 13:22:49 clindamycin HCl 300 mg capsule 2022 023 [id number], [address] [place], [place], [id number], 3 20:13:45 Patient TargetsNo targets recorded. Patient InstructionsNo instructions recorded. Reason for Referral None Reported. Results Created Date Observation Date Name Description Value Unit Range Abnormal Flag Note LastModifiedBy Organization Detail LastModifiedTime 05/25/1905/28/2022 BETA STREP GP A CULTU RE beta strep gp A culture NEGATI VE Refer ence Range : Negat matilda Not Available [facility] ([facility]) [address] [facility], [place], [address], 05/28/2022 10:06:15 05/25/1905/24/2022 rapid strep group A, throa t Unknown Analyte negati ve Not Available [address] [place] [address], [address], 05/24/2022 19:31:05 05/25/1905/24/2022 rapid strep group A, throa t Unknown Analyte Normal = Negati ve Not Available [employer] [address], [address], 05/24/2022 19:31:05 Result Notes None recorded. Problems No Known Problems Medical Equipment None Reported. Allergies Allergen ID Allergen Name Allergen Category Reaction Reaction Severity Criticality Documentation Date Start Date Code Code System Note Provider Name and Address Organization Details Recorded Time 014525 doxycycli ne Not available vomiting Not available Not available 05/24/2022 3640 RxNorm RAY Ronquillo [facility] 3 18:14:59 Medications Name Sig Start Date Stop [...] height Body mass index (BMI) Body weight Oxygen saturation Oxygen saturation in Arterial blood by Pulse oximetry Heart rate Respiratory rate Body temperature Systolic blood pressure Diastolic blood pressure Provider Name and Address Organization Details Last Updated DateTime 3 132.08 cm 41.6 kg/m2 89621.7 8 g 100 % 100 % 96 /min 18 /min 98.6 [degF] 124 mm[Hg] 81 mm[Hg] Ashley Eliasluis eduardo PA - [facility] 18:17:51 Social History Question Answer Notes LastModified by Organizat infoBizz Details LastModified Time Tobacco Smoking Status Former Smoker Ashley Mirna fry, PA - [facility] 05/24/2022 18:16:12 When Did You Quit Smoking? 6-10yearssin celastcigare tte Information not available 05/24/2022 Have You Recently Traveled Abroad? No Information not available 05/24/2022 Sex: Unknown Functional Status Question Answer Note LastModified by Organizat ion Details LastModified Time How many times per week do you consume alcohol? Less than 1 time per week Information not available 05/24/2022 Do you use any illicit or recreational drugs? No Information not available 05/24/2022 Do you or have you ever used any other forms of tobacco or nicotine? No Information not available 05/24/2022 What is your level of alcohol consumption? Occasional Information not available 05/24/2022 Mental Status None recorded. Family History Relationship Description Onset Age of this Age Resolved Age Notes LastModified by Organization Details LastModified Time Father Malignant neoplasm of lung emonfette Not available 2022 18:15:46 Medical History No medical history recorded. Immunizations Vaccine Type Date Status Note Provider Nam e and Address Organization Details Recorded Time Influenza, split virus, quadrivalent, preservative 7 completed Ashley Bradley null, [facility] - [facility] [...] SNOMED-CT Code Diagnosis ICD10 Code Diagnosis Note [id number] [address] [place] [address] 01/28/2020 09:18:17 01/28/2020 11:22:40 [id number] [address] [place] [address] 01/08/2021 10:11:53 01/08/2021 11:51:38 [id number] [address] [place] [address] 01/31/2021 14:16:13 01/31/2021 16:28:52 [id number] [address] [place] [address] 02/04/2021 14:36:38 02/04/2021 16:40:28 [id number] SANDRA NGUYEN MD [address] [place] [address] 05/24/2022 15:31:32 05/24/2022 19:58:16 Sensation of blocked ear [id number] H93.299 Follow up with your PCP in 4 weeks for an ear re-check. Acute tonsillitis 588383 08 J03.90 Health Concerns Section Related Observation LastModified by Organization Detai ls LastModified Time None Recorded Concern Status LastModified by Organization Details LastModified Time None Recorded Advance Directives Directive None Recorded Payers Insurance Date Sequence Insurance Name Policy Number Policy Brown Covered Member ID Brown Member ID Guarantor Name 06/18/2022 1 DANA [id number] Paulino Santos [id number] Paulino Santos Notes Date Note Type Note Provider Name and Address Organization Details Recorded Time 05/24/2022 text/html hard of hearing in right ear x1 month, pt had covid and a sinus infection prior SANDRA NGUYEN MD [address] [place] [address] [place], [address], PA - [facility] 06/18/2022 13:25:08
--- NOTE | 2024-09-03 10:46 | MHC.PC.OV ---
Intake Visit Reasons: Med review Allergies Doxycycline Hyclate Adverse Reaction (Unknown, Verified 07/24/24 15:26) Vomiting Medication List - Last Reconciled 09/03/24 by Jordana Ugalde MD cholecalciferol (vitamin D3) 25 mcg PO DAILY 90 days tamsulosin (Flomax) 0.4 mg PO BEDTIME valacyclovir 1,000 mg PO DAILY Tobacco use date assessed: 07/24/24 Dental Screening Dental Screen Date: 07/24/24 HPI Med review HPI Details History - The patient is a 39-year-old male presenting with a review of laboratory results. - Prediabetes: The fasting blood glucose level was slightly elevated at 102 mg/dL, indicating prediabetes. - The patient was unsure if he fasted properly before the test, which might have affected the results. - Vitamin D deficiency: The patient has a known deficiency and is currently taking vitamin D supplements. - The patient is advised to continue vitamin D supplementation until the levels are re-evaluated. - Urinary rention indicating BPH, Flomax was started which has helped patient Problem List - Prediabetes - Vitamin D deficiency - BPH Patient Instructions - Continue taking vitamin D supplements as prescribed. - Monitor blood sugar levels and maintain a healthy diet to manage prediabetes. - Avoid sugary drinks and foods high in refined sugars and white flour. - Plan to repeat laboratory tests at the next annual visit. - continue flomax and f.u with Urology Review of Systems - General: No fever no chills - Neurological: No headaches no dizziness - Ear nose throat: No sore throat no hearing difficulty no ear pain - Cardiovascular: No syncope, no chest pain, no palpitations - Gastrointestinal: No nausea vomiting or diarrhea [facility] Social History Housing: House Patient Tobacco Use Status: Former Tobacco user Tobacco use type: Cigarette Years Smoked: 6 months e-Cigarette/Vaping Use: Never Used Second Hand Smoke Exposure: No service: No Current occupational status: employed Current occupational exposures/hazards: No Cognitive needs: No Hearing needs: No Vision needs: Yes Questionnaire Thrive Questionnaire Date Thrive assessed: 07/24/24 I am a: Patient What is your living situation today?: I have a steady place to live Within the past 12 months, did the food you bought not last and you didn't have the money to get more?: I choose not to answer this question Within the past 12 months, did you worry whether your food would run out before you got money to buy more?: I choose not to answer this question Do you have trouble paying for medicines?: I choose not to answer this question Do you have trouble getting transportation to medical appointments?: I choose not to answer this question Do you have trouble paying your heating and electricity bill?: I choose not to answer this question Do you have trouble taking care of your child, family member or friend?: I choose not to answer this question Do you have trouble with day-to-day activities such as bathing, preparing meals, shopping, managing finances, etc.?: I choose not to answer this question Are you currently unemployed and looking for a job?: I choose not to answer this question Are you interested in more education?: I choose not to answer this question Please select the resources that you would like help with: None Currently or been in a relationship where the following occur: I choose not to answer THRIVE Score: 0 CHAY-7 AMB Questionnaire CHAY-7 Date CHAY - 7 assessed: 07/24/24 Source: Developed by Drs. William Ramirez, Vivian Hylton, Nav Guzman and colleagues, with an educational benita from [employer]. Physical exam (Primary Care) Tobacco/Smoking Status: Tobacco use Status Tobacco use date assessed 07/24/24 07/24/24 15:27 Patient Tobacco Use Status Former Tobacco user 07/24/24 15:27 Tobacco use type Cigarette 07/24/24 15:27 e-Cigarette/Vaping Use Never Used 07/24/24 15:27 Thrive Assessment: Date of Thrive Assessment Date Thrive assessed 07/24/24 07/24/24 15:30 Currently or been in a relationship where the following occur: I choose not to answer Telehealth Telehealth [facility]health [facility] Location of provider rendering services: practice address Location of patient: address on file Patient Identification confirmed using: Name, : Yes Telehealth method: video Patient verbally consented to treatment: Yes Patient verbally consented to billing insurance company: Yes Patient informed of any privacy concerns related to visit: Yes Minutes spent on Phone/Video with Pt.: 13 Coding Level of Care Code Tele Est Pt Level 3 (97002) Diagnoses BPH associated with nocturia N40.1; R35.1 Vitamin D deficiency E55.9 Impaired fasting blood sugar R73.01 Assessment & Plan Assessment & Plan (1) BPH associated with nocturia: Code(s): N40.1 - Benign prostatic hyperplasia with lower urinary tract symptoms; R35.1 - Nocturia Category: Medical (2) Vitamin D deficiency: Code(s): E55.9 - Vitamin D deficiency, unspecified Category: Medical (3) Impaired fasting blood sugar: Code(s): R73.01 - Impaired fasting glucose Category: Medical Plan History - The patient is a 39-year-old male presenting with a review of laboratory results. - Prediabetes: The fasting blood glucose level was slightly elevated at 102 mg/dL, indicating prediabetes. - The patient was unsure if he fasted properly before the test, which might have affected the results. - Vitamin D deficiency: The patient has a known deficiency and is currently taking vitamin D supplements. - The patient is advised to continue vitamin D supplementation until the levels are re-evaluated. - Urinary rention indicating BPH, Flomax was started which has helped patient Problem List - Prediabetes - Vitamin D deficiency - BPH Patient Instructions - Continue taking vitamin D supplements as prescribed. - Monitor blood sugar levels and maintain a healthy diet to manage prediabetes. - Avoid sugary drinks and foods high in refined sugars and white flour. - Plan to repeat laboratory tests at the next annual visit. - continue flomax and f.u with Urology
== END 2024-09-03 09:13 | disposition home or self-care (01) ==
LOC: HO.HMCC 08:34
PROVIDERS: PCP Internal Medicine; Visit Provider Internal Medicine
DX: N40.1 Benign prostatic hyperplasia with lower urinary tract symptoms (principal); R35.1 Nocturia; E55.9 Vitamin D deficiency, unspecified; R73.01 Impaired fasting glucose

== ENCOUNTER → 2024-09-03 08:34 | Outpatient (BNVA) | payer BC, SELFPAY | PROVIDERS: PCP Internal Medicine; Visit Provider Internal Medicine | DX: Z13.89 Encounter for screening for other disorder (principal) ==

== ENCOUNTER 2024-09-14 08:50 | Outpatient (AMB) | payer BC, SELFPAY ==
--- NOTE | 2024-09-14 08:54 | A.OFFVIS_ITS ---
Intake Visit Reasons: post void dribbling Intake Note: New patient presents today for initial visit for post void dribbling Urology Medication:Tamsulosin Blood Thinner:None Antibiotic Allergies:None PVR:50ml Allergies Doxycycline Hyclate Adverse Reaction (Unknown, Verified 09/14/24 08:54) Vomiting Medication List - Last Reconciled 09/14/24 by Dimitrios Waldron MD cholecalciferol (vitamin D3) 25 mcg PO DAILY 90 days tamsulosin (Flomax) 0.4 mg PO BEDTIME valacyclovir 1,000 mg PO DAILY HPI Comments Details: 09/14/24 History of Present Illness - The patient is a 39-year-old male presenting with post-void dribbling. 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 - He was started on tamsulosin by his primary care provider six weeks ago, which has led to some improvement. - He denies hematuria and dysuria. Discussion Notes I have discussed the continuation of tamsulosin, explaining that it is an alpha remy that relaxes the smooth muscle near the bladder neck and prostate, which can result in retrograde ejaculation. Further evaluation with PSA screening and ultrasound of the urinary tract, including the prostate, was discussed. Follow- up in 12 to 14 weeks was recommended to assess symptom improvement and review imaging and blood work results. Alternative therapies such as laser or resection of prostate tissue were mentioned if indicated. [facility] Social History Housing: House Patient Tobacco Use Status: Former Tobacco user Tobacco use type: Cigarette Years Smoked: 6 months e-Cigarette/Vaping Use: Never Used Second Hand Smoke Exposure: No service: No Current occupational status: employed Current occupational exposures/hazards: No Cognitive needs: No Hearing needs: No Vision needs: Yes Review of Systems Const All systems reviewed & are unremarkable except as noted in HPI and below Reports no additional complaints Eyes Reports no additional complaints ENT Reports no additional complaints Card Reports no additional complaints Resp Reports no additional complaints GI Reports no additional complaints Reports as per HPI Musc Reports no additional complaints Skin/Breast Reports system reviewed and no additional complaints, except as documented Neuro Reports no additional complaints Psych Reports no additional complaints Endo Reports no additional complaints Raghu/Lymph Reports no additional complaints Aller/Immun Reports no additional complaints Physical Exam Const General: healthy appearing, no acute distress and well developed Orientation/consciousness: patient oriented x3 HEENT Head: Yes normocephalic and Yes atraumatic Eyes Conjunctivae: conjunctivae normal Neck Neck: Yes normal visual inspection Chest Chest palpation & inspection: normal inspection of the chest Resp Effort & Inspection: normal respiratory effort GI Inspection: Yes normal to inspection Neuro General: patient oriented x3 Psych Appearance: grossly normal Affect: normal affect Assessment & Plan Assessment & Plan (1) BPH loc w urin obs/LUTS: Code(s): N40.1 - Benign prostatic hyperplasia with lower urinary tract symptoms Category: Medical (2) Benign prostatic hyperplasia with post-void dribbling: Code(s): N40.1 - Benign prostatic hyperplasia with lower urinary tract symptoms; N39.43 - Post-void dribbling Category: Medical Plan Plan - Continue tamsulosin to manage post-void dribbling, noting its mechanism as an alpha remy. - Conduct PSA screening and ultrasound of the urinary tract, including the prostate, for further evaluation. - Schedule follow-up in 12 to 14 weeks to monitor symptom progression and review diagnostic results. Orders: Orders PSA,Total (Free>4and<10) Today N40.1 - Benign prostatic hyperplasia with lower urinary tract symptoms US bladder Today N40.1 - Benign prostatic hyperplasia with lower urinary tract symptoms US renal BI Today N40.1 - Benign prostatic hyperplasia with lower urinary tract symptoms Medications: Refilled tamsulosin (Flomax) 0.4 mg PO BEDTIME 90 caps 3RF Scribe Plan - Not visible on output: Patient was informed and verbally consented to the use of an ambient scribe for clinic note documentation during this visit. Coding Level of Care Code New Pt Level 4 (59436) Diagnoses BPH loc w urin obs/LUTS N40.1 Benign prostatic hyperplasia with post-void dribbling N40.1; N39.43
--- OUTSIDE RECORDS SUMMARY | 2024-09-14 09:03 | XMS_ITS | Data Portability ---
Author Organization RAY Robb [facility], [address] Address [address] [place] [address] Care Team Providers Care Char House Supervisor Name Role Phone ANNABELLE RODRIGEZ Primary Care Provider [phone] Assessment No assessment recorded. Plan of Treatment Reminders Order Date Submit Date Provider Last Modified By Organization Details Last Modified Time Details Appointments None recorded. Lab rapid strep group A, throat 2022 023 [place] [address], [address], 3 20:13:38 streptococc us group A, culture, throat 2022 023 [facility], [address] [place] [address], [address], 3 10:06:15 Referral None recorded. Procedures None recorded. Surgeries None recorded. Imaging None recorded. Medication Orders prednisone 20 mg tablet 2022 023 [email or web address] 247 [facility], [address] [place], [place], [phone], 3 13:22:49 clindamycin HCl 300 mg capsule 2022 023 [facility]17442, [address] [place], [place], [phone], 3 20:13:45 Patient TargetsNo targets recorded. Patient InstructionsNo instructions recorded. Reason for Referral None Reported. Results Created Date Observation Date Name Description Value Unit Range Abnormal Flag Note LastModifiedBy Organization Detail LastModifiedTime 05/25/1905/28/2022 BETA STREP GP A CULTU RE beta strep gp A culture NEGATI VE Refer ence Range : Negat matilda Not Available [facility] ([facility]) [address] [facility], [place], [address], 05/28/2022 10:06:15 05/25/1905/24/2022 rapid strep group A, throa t Unknown Analyte negati ve Not Available [facility] [address], [address], 05/24/2022 19:31:05 05/25/1905/24/2022 rapid strep group A, throa t Unknown Analyte Normal = Negati ve Not Available [facility] [address], [address], 05/24/2022 19:31:05 Result Notes None recorded. Problems No Known Problems Medical Equipment None Reported. Allergies Allergen ID Allergen Name Allergen Category Reaction Reaction Severity Criticality Documentation Date Start Date Code Code System Note Provider Name and Address Organization Details Recorded Time 827403 doxycycli ne Not available vomiting Not available Not available 05/24/2022 3640 RxNorm RAY Ronquillo [facility] 3 18:14:59 Medications Name Sig Start [...] Updated DateTime 3 132.08 cm 41.6 kg/m2 66220.7 8 g 100 % 100 % 96 /min 18 /min 98.6 [degF] 124 mm[Hg] 81 mm[Hg] Ashley Eliasluis eduardo PA - [facility] 3 18:17:51 Social History Question Answer Notes LastModified by Organizat ion Details LastModified Time Tobacco Smoking Status Former Smoker Ashley Alvathomas fry, PA - [facility] 05/24/2022 18:16:12 When Did You Quit Smoking? 6-10yearssin celastcigare tte Information not available 05/24/2022 Have You Recently Traveled Abroad? No Information not available 05/24/2022 Sex: Unknown Functional Status Question Answer Note LastModified by OrganizMaginatics ion Details LastModified Time How many times [...] 30 mcg/0.3 mL dose 1 completed Ashley Monfette null, PA - [facility] 05/24/2022 18:14:26 COVID-19, mRNA, LNP-S, PF, 30 mcg/0.3 mL dose 1 completed Ashley Monfearmonde null, PA - [facility] 05/24/2022 18:14:26 Tdap 7 completed Ashley Monfette null, PA - [facility] 05/24/2022 18:14:26 Influenza, split virus, trivalent, preservative 5 completed Ashley Monfette null, PA - [facility] 05/24/2022 18:14:26 Past Encounters Encounter ID Performer Location Encounter Start Date Encounter Closed Date Diagnosis/Indication Diagnosis SNOMED-CT Code Diagnosis ICD10 Code Diagnosis Note [id number] [address] [address] [place] [address] 01/28/2020 09:18:17 01/28/2020 11:22:40 [id number] [address] [address] [place] [address] 01/08/2021 10:11:53 01/08/2021 11:51:38 [id number] [address] [place] [address] 01/31/2021 14:16:13 01/31/2021 16:28:52 [id number] [address] [place] [address] 02/04/2021 14:36:38 02/04/2021 16:40:28 [id number] SANDRA NGUYEN MD [address] [place] [address] 05/24/2022 15:31:32 05/24/2022 19:58:16 Sensation of blocked ear [id number] H93.299 Follow up with your PCP in 4 weeks for an ear re-check. Acute tonsillitis 645476 08 J03.90 Health Concerns Section Related Observation LastModified by Organization Detai ls LastModified Time None Recorded Concern Status LastModified by Organization Details LastModified Time None Recorded Advance Directives Directive None Recorded Payers Insurance Date Sequence Insurance Name Policy Number Policy Brown Covered Member ID Brown Member ID Guarantor Name 06/18/2022 1 [facility] [id number] Paulino Santos [id number] Paulino Santos Notes Date Note Type Note Provider Name and Address Organization Details Recorded Time 05/24/2022 text/html hard of hearing in right ear x1 month, pt had covid and a sinus infection prior SANDRA NGUYEN MD [address] [place], [place] [address], [address], PA - [facility] 06/18/2022 13:25:08
== END 2024-09-14 09:48 | disposition home or self-care (01) ==
LOC: HO.HUSH 08:50
PROVIDERS: PCP Internal Medicine; Visit Provider Urology
DX: N40.1 Benign prostatic hyperplasia with lower urinary tract symptoms (principal); N39.43 Post-void dribbling; Z13.9 Encounter for screening, unspecified
CPT/HCPCS: 99204

== ENCOUNTER → 2024-09-14 08:50 | Outpatient (BNVA) | payer BC, SELFPAY | PROVIDERS: PCP Internal Medicine; Visit Provider Urology | DX: N39.43 Post-void dribbling (principal) | CPT/HCPCS: 51798; 81003 ==

== ENCOUNTER 2024-12-02 15:03 | Outpatient (REF) | payer BC, SELFPAY ==
[2024-12-02 17:46] LABS: PSA,Total (Free>4and<10) 1.01 ng/mL (0.00-4.00)
--- OUTSIDE RECORDS SUMMARY | 2024-12-02 18:36 | XMS_ITS | Clinical Summary ---
Author Organization [facility] Address [address] [place] [address] Phone Care Team Providers Care Market Manager Name Role Phone Jordana Ugalde MD Primary Care Provider [phone] Allergies Active Allergy Reactions Criticality Noted Date Comments Doxycycline Nausea and/or Vomiting 06/18/2022 Medications No known medications Active Problems No known active problems Social History Tobacco Use Types Packs/Day Years Used Date Smoking Tobacco: Former Cigarettes Passive Smoke Exposure: Past Smokeless Tobacco: Never Tobacco Cessation:Counseling Given: Not Answered Education Answer Date Recorded Are you interested in more education? Not on darren e 07/14/2022 Are you concerned about learning? Not on file 07/14/2022 No 07/14/2022 No 07/14/2022 Digital Access Answer Date Recorded No 08/12/2022 No 08/12/2022 No 08/12/2022 Reliable internet access at home? Not on file 08/12/2022 Device with a working camera? Not on file Sex and Gender Information Value Date Recorded Sex Assigned at Not on file Legal Sex Male 11:45 AM EDT Gender Identity Not on file Sexual Orientation Not on file Last Filed Vital Signs Vital Sign Reading Time Taken Comments Blood Pressure 160/68 06/18/2022 1:16 PM EDT Pulse 88 06/18/2022 1:16 PM EDT Temperature 36.9 C (98.5 F) 06/18/2022 1:16 PM EDT Respiratory Rate 16 06/18/2022 1:16 PM EDT Oxygen Saturation 99% 06/18/2022 1:16 PM EDT Inhaled Oxygen Concentration - - Weight 76.2 kg (168 lb) 06/18/2022 1:16 PM EDT p er pt Height - - Body Mass Index - - Plan of Treatment Health Maintenance Due Date Last Done Comments LIPID PANEL 1984 DEPRESSION SCREENING 1996 SMOKING Hx and SMOKELESS TOB ACCO SCREENING 1997 HEPATITIS C SCREENING 2002 HIV ONE-TIME SCREENING (18-6 5 YEARS) 2002 Adult Td,Tdap Booster 11/15/2009 11/16/1999 INFLUENZA VACCINE (#1) 2024 COVID-19 VACCINE ( - 2023-2 5 season) 2024 HEPATITIS A VACCINES Aged Out No long er eligible based on patient's age to complete this topic HIB VACCINES Aged Out No longer eligi ble based on patient's age to complete this topic MENINGOCOCCAL VACCINES (ACWY) Aged Out No longer eligible based on patient's age to complete this topic MENINGOCOCCAL VACCINES (B) Aged Out N o longer eligible based on patient's age to complete this topic PNEUMOCOCCAL VACCINES (0-49 years) Aged Out No longer eligible based on patient's age to complete this topic Medical Devices Not on file Insurance O POS O POS HMO POS O POS O POS HMO POS [facility] [place] Address: [facility] [id number] [place] [address] Care Teams Market Manager Relationship Specialty Start Date End Date Jordana Ugalde MD [facility] [place] [address] PCP - General Internal Medicine 06/18/22 Additional Source Comments The information contained in this document represents components of the legal health record. It is not the complete legal health record.[facility]
== END 2024-12-02 15:04 | disposition home or self-care (01) ==
LOC: HO.HMGCLDS 15:03
PROVIDERS: PCP Internal Medicine; Visit Provider Urology
DX: Z12.5 Encounter for screening for malignant neoplasm of prostate (principal); N40.1 Benign prostatic hyperplasia with lower urinary tract symptoms
CPT/HCPCS: 36415; 84153

== ENCOUNTER 2024-12-10 15:48 | Outpatient (REF) | payer BC, SELFPAY ==
--- NOTE | ~2024-12-10 | US_ITS ---
EXAMINATION: US RETROPERITONEAL COMPLETE (RENAL) CLINICAL INFORMATION: BPH with UTI symptoms.. COMPARISON: Correlated to CT abdomen and pelvis dated July 19, 2017. TECHNIQUE: Real-time imaging of the kidneys and bladder. FINDINGS: RIGHT KIDNEY: 10 x 6 x 5 cm (SAG x AP x TRV). Normal echotexture. Renal cortical thickness is normal. No hydronephrosis. No solid or cystic lesion. LEFT KIDNEY: 11 x 5 x 5 cm (SAG x AP x TRV). Volume: 127 cc. Normal echotexture. Renal cortical thickness is normal. No hydronephrosis. There is a 7 mm hyperechoic structure in the corticomedullary junction midportion. BLADDER: Fluid-filled. Bilateral ureteral jets are demonstrated. Prevoid bladder volume is 418 mL. Postvoid bladder volume is 41 mL. Prostate gland measures 4.3 x 3.4 x 3.3 cm and volume: 25 cc. US/US retroperitoneal comp IMPRESSION: No hydronephrosis. 7 mm nonobstructing calculus, left kidney. Prostate gland volume: 25 cc.. Electronically signed by: Kayden Sifuentes MD 12/11/2024 07:03 AM EDT
--- OUTSIDE RECORDS SUMMARY | 2024-12-10 19:47 | XMS_ITS | Clinical Summary ---
Author Organization [facility] Address [address] [place] [address] Phone Care Team Providers Care Manager Occupational Name Role Phone Jordana Ugalde MD Primary Care Provider [phone] Allergies Active Allergy Reactions Criticality Noted Date [...] POS O POS O POS HMO POS Care Teams Manager Occupational Relationship Specialty Start Date End Date Jordana Ugalde MD [facility] [place] [address] PCP - General Internal Medicine 06/18/22 Additional Source Comments The information contained in this document represents components of the legal health record. It is not the complete legal health record.[facility]
== END 2024-12-10 15:49 | disposition home or self-care (01) ==
LOC: HO.US 15:48
PROVIDERS: PCP Internal Medicine; Visit Provider Urology
DX: N40.1 Benign prostatic hyperplasia with lower urinary tract symptoms (principal)
CPT/HCPCS: 76770

== ENCOUNTER → 2024-12-10 15:51 | Outpatient (BNV) | payer BC, SELFPAY | PROVIDERS: PCP Internal Medicine; Visit Provider Radiology Diagnostic Radiology | DX: N20.0 Calculus of kidney (principal) | CPT/HCPCS: 76770 ==

== ENCOUNTER 2024-12-17 08:38 | Outpatient (AMB) | payer BC, SELFPAY ==
--- NOTE | 2024-12-17 08:38 | A.OFFVIS_ITS ---
Intake Visit Reasons: 13w/US/PSA Intake Note: Patient presents today via telehealth for 13w/US/PSA * 12/02 Total PSA:1.01 * 12/10 Retroperitoneal US Urology Medication:Tamsulosin Blood Thinner:None Antibiotic Allergies:None Allergies Doxycycline Hyclate Adverse Reaction (Unknown, Verified 12/17/24 08:38) Vomiting HPI Comments Details: 12/17/24--Paulino is a 39-year-old male presents as a telehealth follow-up. Review of studies renal ultrasound performed on 12/10/2024. 7 mm left kidney stone, otherwise kidneys are normal, estimated prostate volume 25 mL. PSA on 10/03/2024 is 1.01. History of Present Illness The patient is a 39-year-old male presenting for a follow-up. The patient underwent a renal ultrasound on 12/10/24, which revealed a 7 mm kidney stone in the left kidney. The prostate was noted to be of normal size, with an estimated volume of 25 mL, and the PSA level was 1.01, which is within normal limits. The patient has been advised to continue taking tamsulosin to manage urinary symptoms, despite the normal prostate size. Results - Renal ultrasound on 12/10/24: 7 mm kidney stone in the left kidney, normal prostate size - PSA on 10/03/24: 1.01 (normal range 0-4) Plan 1. Nephrolithiasis - A 24-hour urine test will be conducted to evaluate dietary factors contributing to stone formation. - A CAT scan will be ordered to confirm the size and location of the stone. C onsider ESWL in the future 2. Preventative Care: Psa Screening - PSA level is within normal limits; continue routine monitoring. 09/14/24 History of Present Illness - The patient is a 39-year-old male presenting with post-void dribbling. 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 - He was started on tamsulosin by his primary care provider six weeks ago, which has led to some improvement. - He denies hematuria and dysuria. Discussion Notes I have discussed the continuation of tamsulosin, explaining that it is an alpha remy that relaxes the smooth muscle near the bladder neck and prostate, which can result in retrograde ejaculation. Further evaluation with PSA screening and ultrasound of the urinary tract, including the prostate, was discussed. Follow- up in 12 to 14 weeks was recommended to assess symptom improvement and review imaging and blood work results. Alternative therapies such as laser or resection of prostate tissue were mentioned if indicated. [facility] Social History Housing: House Patient Tobacco Use Status: Former Tobacco user Tobacco use type: Cigarette Years Smoked: 6 months e-Cigarette/Vaping Use: Never Used Second Hand Smoke Exposure: No service: No Current occupational status: employed Current occupational exposures/hazards: No Cognitive needs: No Hearing needs: No Vision needs: Yes Review of Systems Const All systems reviewed & are unremarkable except as noted in HPI and below Reports no additional complaints Eyes Reports no additional complaints ENT Reports no additional complaints Card Reports no additional complaints Resp Reports no additional complaints GI Reports no additional complaints Reports as per HPI Musc Reports no additional complaints Skin/Breast Reports system reviewed and no additional complaints, except as documented Neuro Reports no additional complaints Psych Reports no additional complaints Endo Reports no additional complaints Raghu/Lymph Reports no additional complaints Aller/Immun Reports no additional complaints Telehealth Telehealth Telehealth Platform: [employer] Location of provider rendering services: practice address Location of patient: address on file Patient Identification confirmed using: Name, : Yes Telehealth method: video Patient verbally consented to treatment: Yes Patient verbally consented to billing insurance company: Yes Patient informed of any privacy concerns related to visit: Yes Results Reviewed Results Reviewed: Date of Service: 12/10/24 Reason for Exam: N40.1 - Benign prostatic hyperplasia with lower urinary tract symptoms EXAMINATION: US RETROPERITONEAL COMPLETE (RENAL) CLINICAL INFORMATION: BPH with UTI symptoms.. COMPARISON: Correlated to CT abdomen and pelvis dated July 19, 2017. TECHNIQUE: Real-time imaging of the kidneys and bladder. FINDINGS: RIGHT KIDNEY: 10 x 6 x 5 cm (SAG x AP x TRV). Normal echotexture. Renal cortical thickness is normal. No hydronephrosis. No solid or cystic lesion. LEFT KIDNEY: 11 x 5 x 5 cm (SAG x AP x TRV). Volume: 127 cc. Normal echotexture. Renal cortical thickness is normal. No hydronephrosis. There is a 7 mm hyperechoic structure in the corticomedullary junction midportion. BLADDER: Fluid-filled. Bilateral ureteral jets are demonstrated. Prevoid bladder volume is 418 mL. Postvoid bladder volume is 41 mL. Prostate gland measures 4.3 x 3.4 x 3.3 cm and volume: 25 cc. IMPRESSION: No hydronephrosis. 7 mm nonobstructing calculus, left kidney. Prostate gland volume: 25 cc.. Assessment & Plan Assessment & Plan (1) Kidney stone on left side: Code(s): N20.0 - Calculus of kidney Category: Medical (2) Weak urinary stream: Code(s): R39.12 - Poor urinary stream Category: Medical Plan Plan 1. Nephrolithiasis - A 24-hour urine test will be conducted to evaluate dietary factors contributing to stone formation. - A CAT scan will be ordered to confirm the size and location of the stone. Consider ESWL in the future 2. Preventative Care: Psa Screening - PSA level is within normal limits; continue routine monitoring. Orders: Orders CT kidney stone 12/17/24 N20.0 - Calculus of kidney Patient Instructions: The patient had an opportunity to ask questions regarding treatment plan. The patient expressed understanding and agreement with the above treatment plan. The patient is aware they should contact our office by phone for worsening of their current condition or the appearance of new symptoms. Compliance is encouraged with any medications and followup testing that is ordered. It is a privilege to be allowed the opportunity to participate in the urologic care of your patient. If you have any questions or concerns regarding treatment for the above conditions please do not hesitate to contact me. The office telephone contact is [phone]. This note is constructed in part using voice recognition software. While every effort has been made to ensure accuracy broomcorn seeder errors may have been included. Yours sincerely, Dimitrios Waldron MD Scribe Plan - Not visible on output: Patient was informed and verbally consented to the use of an ambient scribe for clinic note documentation during this visit. Coding Level of Care Code Tele Est Pt Level 4 (81182) Diagnoses Kidney stone on left side N20.0 Weak urinary stream R39.12
--- OUTSIDE RECORDS SUMMARY | 2024-12-17 08:58 | XMS_ITS | Clinical Summary ---
Author Organization [facility] Address [address] [place] [address] Phone Care Team Providers Care Engineer Fishing Vessel Name Role Phone Jordana Ugalde MD Primary Care Provider [phone] Allergies Active Allergy Reactions Criticality Noted Date [...] POS O POS O POS HMO POS [facility] Address: [facility] [id number] [place] [address] Care Teams Engineer Fishing Vessel Relationship Specialty Start Date End Date Jordana Ugalde MD [facility] [place] [address] PCP - General Internal Medicine 06/18/22 Additional Source Comments The information contained in this document represents components of the legal health record. It is not the complete legal health record.[facility]
== END 2024-12-17 11:15 | disposition home or self-care (01) ==
LOC: HO.HUSH 08:38
PROVIDERS: PCP Internal Medicine; Visit Provider Urology
DX: N20.0 Calculus of kidney (principal); R39.12 Poor urinary stream
CPT/HCPCS: 99214